=== PATIENT | male | born 1990 | race Caucasian/White ===

== ENCOUNTER → 2016-10-06 | Emergency (ER) | payer SELFPAY | END | disposition disaster alternative care site (69) | LOC: GAMB 01:49 | DX: R04.2 Hemoptysis (principal); F10.129 Alcohol abuse with intoxication, unspecified ==

== ENCOUNTER 2016-10-21 04:20 | Emergency (ER) | payer SELFPAY ==
--- NOTE | ~2016-10-21 | ER ---
PATIENT'S NAME: HALIMA NAVARRO [facility] AGE: 26 Y [address] ROOM: [place] [address] LOCATION: [facility] ADMIT DATE: 10/21/2016 ER/Outpatient Report DISCHARGE DATE: 10/21/2016 FAMILY PHYSICIAN: PHYSICIAN, NO ATTENDING PHYSICIAN: Greyson Ramos CHIEF COMPLAINT: Back pain. HISTORY OF PRESENT ILLNESS: Approximately noon yesterday, the patient developed back pain. It is located at the left lower mid back. It does not radiate down his legs, and he has no neurologic symptoms. The pain is aching and stabbing and pulling in nature. It is fluctuating in character. He has tried ibuprofen, rest, warm soaks, and Icy Hot. He has never had anything like this before. The pain started while getting out of a couch. He denies any change in bowel or bladder habits. PAST MEDICAL HISTORY: Documented on the record and reviewed by me. SOCIAL HISTORY: Documented on the record and reviewed by me. MEDICATIONS: Documented on the record and reviewed by me. ALLERGIES: DOCUMENTED ON THE RECORD AND REVIEWED BY ME. REVIEW OF SYSTEMS: Negative except as noted in the HPI. PHYSICAL EXAMINATION: VITAL SIGNS: Blood pressure 172/81, pulse 97, respiratory rate is 18, temperature 97.9, and SpO2 is 96% on room air. Pain is moderate to severe at this time. GENERAL: Age-appropriate male, upright in the exam table. No acute pain or distress. NEUROLOGIC: Awake and alert. GCS 15. No focal deficits. No asymmetry. No gait abnormalities. HEENT: Normocephalic, atraumatic. Eyes are PERRL. Oropharynx is clear. NECK: Supple. Trachea is midline. CHEST: Heart has regular rate and rhythm with no murmurs. Lungs are clear to auscultation bilateral. ABDOMEN: Benign. PATIENT'S NAME: HALIMA NAVARRO [facility] AGE: 26 Y [address] ROOM: [place] [address] LOCATION: [facility] ADMIT DATE: 10/21/2016 ER/Outpatient Report DISCHARGE DATE: 10/21/2016 FAMILY PHYSICIAN: PHYSICIAN, NO ATTENDING PHYSICIAN: Greyson Ramos BACK: Tender at the left spine region of the upper lumbar. No midline tenderness. No erythema, no warmth. EXTREMITIES: Warm, well perfused. Strength is symmetric. SKIN: Warm, dry, and intact. No rashes. LABORATORY DATA AND X-RAYS: None. IMPRESSION: Back spasm. EMERGENCY DEPARTMENT COURSE: The patient was seen and evaluated. The patient was given a prescription for methocarbamol. No interventions were given in the ER. The patient was encouraged to take Tylenol in addition to this medication or alternate with ibuprofen. This should not affect his seizure medication. If not improving in a few days, he should return. Encourage ambulation, ice as needed. MD MARGARETET MURPHY/desmond /[id number] d: 10/21/16 0645 t: 10/26/16 0952, OUTPATIENT REPORT
== END 2016-10-21 05:02 | disposition disaster alternative care site (69) ==
LOC: GMED 04:20
DX: M62.830 Muscle spasm of back (principal); G40.909 Epilepsy, unspecified, not intractable, without status epilepticus; F17.210 Nicotine dependence, cigarettes, uncomplicated; Z79.899 Other long term (current) drug therapy